=== PATIENT | male | born 2000 | race Two or more races ===

== ENCOUNTER 2020-03-31 18:03 | Emergency (ER) | payer MEDICAID ==
[~2020-03-31] VITALS: Ht 190.5 cm; Wt 97.5 kg
[2020-03-31 18:58] VITALS: BP 124/67
== END 2020-03-31 19:00 | disposition home or self-care (01) ==
LOC: ER 18:03
DX: L02.31 Cutaneous abscess of buttock (principal); Z88.1 Allergy status to other antibiotic agents

== ENCOUNTER 2022-09-01 22:33 | Emergency (ER) | payer MEDICAID | END 2022-09-02 01:57 | disposition left against medical advice (07) | LOC: ER 22:43 | DX: S09.8XXA Other specified injuries of head, initial encounter (principal); Z53.21 Procedure and treatment not carried out due to patient leaving prior to being seen by health care provider; X58.XXXA Exposure to other specified factors, initial encounter; Y93.9 Activity, unspecified; Y92.9 Unspecified place or not applicable; Y99.9 Unspecified external cause status ==